=== PATIENT | female | born 1985 ===

== ENCOUNTER 2018-10-18 17:44 | Emergency (ER) | payer OTHER ==
[2018-10-18 18:05] VITALS: BP 119/82
--- NOTE | 2018-10-18 18:35 | UC ---
UC General HPI - HPI Summary HPI Summary: 33-year-old woman comes in to clinic with a chief complaint of insomnia. She has a long history of intermittent insomnia. In the past she's been on trazodone and that stopped working and then she been on Ambien. 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 She's been working on sleep hygiene which she is very familiar with and took melatonin 2 nights ago which helped her get to sleep but she could not stay asleep. Melatonin did not help her last night. - History of Current Complaint Chief Complaint: UCGeneralIllness Stated Complaint: TROUBLE SLEEPING Time Seen by Provider: 10/18/18 18:09 Hx Last Menstrual Period: 09/23/18 Pain Intensity: 0 - Allergy/Home Medications Allergies/Adverse Reactions: Allergies Allergy/AdvReac Type Severity Reaction Status Date / Time No Known Allergies Allergy Verified 10/18/18 18:06 Home Medications: Home Medications Melatonin/Pyridoxine [Melatonin 5 mg Tablet] 4 each PO QPM 10/18/18 [History Confirmed 10/18/18] PMH/Surg Hx/FS Hx/Imm Hx Previously Healthy: Yes Psychological History: Other - insomnia - Surgical History Surgical History: None - Social History Alcohol Use: None Substance Use Type: None Smoking Status (MU): Never Smoked Tobacco Review of Systems All Other Systems Reviewed And Are Negative: Yes Constitutional: Positive: Negative Skin: Positive: Negative Eyes: Positive: Negative ENT: Positive: Negative Respiratory: Positive: Negative Cardiovascular: Positive: Negative Gastrointestinal: Positive: Negative Motor: Positive: Negative Neurovascular: Positive: Negative Musculoskeletal: Positive: Negative Neurological: Positive: Negative Psychological: Positive: Negative Is Patient Immunocompromised?: No Physical Exam Triage Information Reviewed: Yes Appearance: Well-Appearing, No Pain Distress, Well-Nourished Vital Signs: Initial Vital Signs Temp 99.1 F 10/18/18 18:01 Pulse 59 10/18/18 18:01 Resp 16 10/18/18 18:01 BP 119/82 10/18/18 18:01 Pulse Ox 100 10/18/18 18:01 Vital Signs Reviewed: Yes Eye Exam: Normal Eyes: Positive: Conjunctiva Clear ENT: Positive: Pharynx normal Neck exam: Normal Neck: Positive: Supple Respiratory: Positive: Lungs clear, Normal breath sounds, No respiratory distress Cardiovascular: Positive: RRR Musculoskeletal Exam: Normal Musculoskeletal: Positive: Strength Intact, ROM Intact Neurological Exam: Normal Neurological: Positive: Alert, Muscle Tone Normal Psychological Exam: Normal Psychological: Positive: Normal Response To Family, Age Appropriate Behavior Skin Exam: Normal Course/Dx - Course Course Of Treatment: We discussed sleep hygiene and the use of Benadryl when necessary. Patient's plan is to try Benadryl this evening. We discussed the use of trazodone. Patient reports that in the past she got new Alice wasn't working but she knows that Ambien does work. She recalls that she is very low dose of Ambien. I'm writing a prescription for Ambien 5 mg to be taken in the evening. Plan is to follow-up with her primary care doctor reevaluation sooner if any questions or concerns. - Diagnoses Provider Diagnosis: Insomnia Discharge - Sign-Out/Discharge Documenting (check all that apply): Patient Departure All imaging exams completed and their final reports reviewed: No Studies - Discharge Plan Condition: Stable Disposition: HOME Prescriptions: Zolpidem Tartrate [Ambien] 5 mg PO QPM PRN #20 tablet MDD 10MG PRN Reason: Insomnia Patient Education Materials: Insomnia (ED) Referrals: [facility] [place] [Outside] Additional Instructions: FOLLOW UP WITH YOUR DOCTOR. GET RECHECKED FOR ANY WORSENING OF YOUR CONDITION OR QUESTIONS OR CONCERNS. - Billing Disposition and Condition Condition: STABLE Disposition: Home
== END 2018-10-18 18:49 | disposition home or self-care (01) ==
LOC: UCEAST 17:44
DX: G47.00 Insomnia, unspecified (principal)
CPT/HCPCS: 99202; G0463